=== PATIENT | female | born 1980 | race Caucasian/White ===

== ENCOUNTER 2022-02-28 16:21 | Emergency (ER) | payer SELFPAY ==
[~2022-02-28] VITALS: Ht 162.6 cm; Wt 68.0 kg
[2022-02-28] MEDS ORDERED: ONDANSETRON 4 MG/2 ML VIAL ONE (16:27)
[2022-02-28] MEDS ORDERED: ONDANSETRON 4 MG/2 ML VIAL IVP ONE (16:30)
[2022-02-28 16:31] VITALS: BP 110/72
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
--- NOTE | 2022-02-28 16:53 | NUR ---
pt provided with bedpan for urine collection. unable to produce at this time. will attempt again later
--- NOTE | 2022-02-28 19:16 | NUR ---
gave report to angel dallas
--- NOTE | 2022-02-28 19:30 | NUR ---
PT RECEIVED ASLEEP W/ EASY, STARTLED AROUSAL TO HER NAME. ABLE TO ANDSWER SIMPLE QIUESTIONS RE: ASSESSMENT AND HX. RETURNED TO SLEEP VS WNL. PENDING MD DISPOSITION.
[2022-02-28 19:52] LABS: BENZODIAZEPINE, URINE NEGATIVE ng/mL (NEG <=200); CANNABINOID, URINE NEGATIVE ng/mL (NEG <=50); COCAINE, URINE NEGATIVE ng/mL (NEG <=300)
[2022-02-28 19:53] LABS: BARBITURATE, URINE NEGATIVE ng/ml (NEG <=200); OPIATE, URINE NEGATIVE ng/mL (NEG <=2000); PHENCYCLIDINE SCREEN,URINE NEGATIVE ng/mL (NEG <=25)
[2022-02-28] MEDS ORDERED: NALO4SPR NS (21:27)
[2022-02-28 21:37] VITALS: BP 95/59
--- NOTE | 2022-02-28 21:37 | NUR ---
Patient discharged with v/s stable. Written and verbal after care instructions given and explained. Patient verbalized understanding. Ambulatory with steady gait. All questions addressed prior to discharge. Advised to follow up with PMD.
--- NOTE | 2022-02-28 22:15 | NUR ---
The patient's care was reviewed and supervised by Jessie Mendoza RN, RN.
== END 2022-02-28 21:37 | disposition home or self-care (01) ==
LOC: MED 16:21
DX: F15.10 Other stimulant abuse, uncomplicated (principal)
CPT/HCPCS: 80305; 81025; 96374; 99283; J2405

== ENCOUNTER 2022-03-22 13:19 | Emergency (ER) | payer MEDICARE, MEDICAID ==
[~2022-03-22] VITALS: Ht 162.6 cm; Wt 58.5 kg
[~2022-03-22 13:19] MED LIST: NALO4SPR NS
[2022-03-22 13:32] VITALS: BP 143/93
[2022-03-22] MEDS ORDERED: ELIMC TP (14:48)
[2022-03-22] MEDS ORDERED: DIPH25TA53 PO (14:48)
[2022-03-22] MEDS ORDERED: SULF-58 PO (14:48)
[2022-03-22] MEDS ORDERED: IBUP-2213 PO (14:48)
[2022-03-22] MEDS ORDERED: CEPH-588 PO (14:48)
--- NOTE | 2022-03-22 15:08 | NUR ---
left w/o dc papers
[2022-03-22 15:09] VITALS: BP 143/93
== END 2022-03-22 15:45 | disposition home or self-care (01) ==
LOC: MED 13:19
DX: R21 Rash and other nonspecific skin eruption (principal); L03.90 Cellulitis, unspecified; R03.0 Elevated blood-pressure reading, without diagnosis of hypertension; F17.210 Nicotine dependence, cigarettes, uncomplicated; F12.90 Cannabis use, unspecified, uncomplicated; M79.602 Pain in left arm; Z79.899 Other long term (current) drug therapy
CPT/HCPCS: 99281

== ENCOUNTER 2022-04-04 19:09 | Emergency (ER) | payer MEDICARE, MEDICAID ==
[~2022-04-04] VITALS: Ht 162.6 cm; Wt 59.0 kg
[~2022-04-04 19:09] MED LIST changes: +CEPH-588 PO; +DIPH25TA53 PO; +ELIMC TP; +IBUP-2213 PO; +SULF-58 PO
[2022-04-04 19:35] VITALS: BP 167/98
--- NOTE | 2022-04-04 19:38 | NUR ---
TO LOBBY A/W BED AMBULATORY
--- NOTE | 2022-04-04 21:59 | NUR ---
ATTEMPTED TO CALL PATIENT FROM LOBBY WITH NO RESPONSE.
--- NOTE | 2022-04-04 22:09 | NUR ---
MD COTTON ATTEMPTED TO CALL [facility] WITH NO RESPONSE
--- NOTE | 2022-04-04 22:11 | NUR ---
ATTEMPTED TO CALL PATIETN WITH PHONE NUMBER PROVIDED WITH NO RESPOSE. WRONG NUMBER.
[2022-04-05] MEDS ORDERED: BACTO TP (01:56)
[2022-04-05] MEDS ORDERED: SILV-55 TP (04:08)
[2022-04-05] MEDS ORDERED: KETO2FOA2 TP (04:08)
== END 2022-04-04 22:11 | disposition left against medical advice (07) ==
LOC: MED 19:09
DX: M79.10 Myalgia, unspecified site (principal); Z53.21 Procedure and treatment not carried out due to patient leaving prior to being seen by health care provider
CPT/HCPCS: 99283

== ENCOUNTER 2022-04-05 01:44 | Emergency (ER) | payer MEDICARE, MEDICAID ==
[~2022-04-05] VITALS: Ht 162.6 cm; Wt 59.0 kg
--- NOTE | 2022-04-05 01:48 | NUR ---
Dr. Watkins examining patient.
[2022-04-05] MEDS ORDERED: BACITRACIN OINT 500 UNITS/GM PKT TP ONE ×2 (01:55→04:33)
[2022-04-05] MEDS ORDERED: BACTO TP (01:56)
[2022-04-05 02:00] VITALS: BP 150/89
[2022-04-05 03:56] LABS: BASOPHILS % (AUTO) 0.3 % (0.0-2.0); EOSINOPHILS # (AUTO) 0.1 K/uL (0-0.4); EOSINOPHILS % (AUTO) 0.9 % (0.0-4.0); HEMATOCRIT 32.5 % (36-48); HEMOGLOBIN 10.3 g/dL (12.0-16.0); LYMPHOCYTES # (AUTO) 2.8 K/uL (2.5-16.5); LYMPHOCYTES % (AUTO) 27.8 % (20.5-51.1); MEAN CORPUSCULAR HEMOGLOBIN 24 pg (27-31); MEAN CORPUSCULAR HGB CONC 32 g/dL (33-37); MONOCYTES # (AUTO) 0.5 K/uL (0.8-1.0); MONOCYTES % (AUTO) 4.5 % (1.7-9.3); NEUTROPHILS # (AUTO) 6.8 K/uL (1.8-7.7); NEUTROPHILS % (AUTO) 66.5 % (42.2-75.2); PLATELET COUNT (AUTO) 429 K/uL (140-450); RED BLOOD CELL COUNT(AUTO) 4.39 MIL/uL (4.20-5.40); RED CELL DISTRIBUTION WIDTH 21.1 % (11.6-13.7); WHITE BLOOD COUNT (AUTO) 10.2 K/uL (4.8-10.8)
[2022-04-05 04:03] LABS: ALBUMIN 3.4 g/dL (3.4-5.0); ANION GAP 13.6 (8-16); CARBON DIOXIDE 27.8 mmol/L (21-32); CREATININE 0.6 mg/dL (0.6-1.3); POTASSIUM 3.4 mmol/L (3.5-5.1); TOTAL BILIRUBIN 0.2 mg/dL (0.0-1.0)
[2022-04-05] MEDS ORDERED: KETO2FOA2 TP (04:08)
[2022-04-05] MEDS ORDERED: SILV-55 TP (04:08)
[2022-04-05] MEDS ORDERED: HYDROcodone/APAP 5/325 MG 1 TAB TAB PO ONE (04:45)
[2022-04-05] MEDS ORDERED: HYDROcodone/APAP 5/325 MG 1 TAB TAB ONE (04:47)
[2022-04-05 04:52] VITALS: BP 145/82
== END 2022-04-05 04:25 | disposition home or self-care (01) ==
LOC: MED 01:44
DX: R21 Rash and other nonspecific skin eruption (principal)
CPT/HCPCS: 36415; 80053; 85025; 99283